=== PATIENT | female | born 1960 | race Caucasian/White ===

== ENCOUNTER → 2017-04-13 | Day surgery (SDC) | payer OTHER ==
[~2017-04-13] VITALS: Ht 165.1 cm; Wt 88.5 kg
== END | disposition home or self-care (01) ==
LOC: FAS 09:53
DX: Z12.11 Encounter for screening for malignant neoplasm of colon (principal); D12.2 Benign neoplasm of ascending colon; K57.30 Diverticulosis of large intestine without perforation or abscess without bleeding; K62.1 Rectal polyp; E03.9 Hypothyroidism, unspecified; J44.9 Chronic obstructive pulmonary disease, unspecified; I10 Essential (primary) hypertension; F17.210 Nicotine dependence, cigarettes, uncomplicated; Z98.890 Other specified postprocedural states; Z79.899 Other long term (current) drug therapy
CPT/HCPCS: J2704

== ENCOUNTER 2020-10-30 12:08 | Day surgery (SDCO) | payer OTHER ==
[2020-10-30 13:00] LABS: BASOPHIL 0.7 % (0-2); EOSINOPHIL 0.4 % (0-5); HCT 50.2 % (37.0-47.0); HGB 17.2 g/dl (12.5-16.0); MCH 31.2 pg (25.0-31.0); MCHC 34.3 g/dL (32.0-36.0); MCV 91.1 fL (78.0-100.0); MONOCYTE 5.1 % (0-12); NEUTROPHIL 69.4 % (41-80); NRBC 0; PLT 426 K/uL (150-400); RBC 5.51 M/uL (4.20-5.40); RDW 12.5 % (11.5-14.0); WBC 13.4 K/uL (4.0-10.5)
[2020-10-30 13:05] LABS: INR 1.06 (0.9-1.2); PROTHROMBIN TIME 13.1 SECONDS (11.4-13.6); PTT 29.8 SECONDS (22.2-34.7)
[2020-10-30 13:06] LABS: D-DIMER < 0.27 ug/mLFEU (0.00-0.41)
[2020-10-30 13:12] LABS: ALBUMIN 4.1 g/dL (3.4-5.0); BILIRUBIN - TOTAL 0.9 mg/dL (0.2-1.0); BUN/CREAT RATIO (CALC) 38.8 RATIO; CREATININE 1.29 mg/dL (0.51-0.95); TOTAL PROTEIN 8.1 g/dL (6.4-8.2)
[2020-10-30 13:22] LABS: PRO-BNP 160 pg/mL (<125)
[2020-10-30 14:11] LABS: CORONAVIRUS 2019 SARS-COV-2 NEGATIVE (NEGATIVE); INFLUENZA A NAA NEGATIVE (NEGATIVE)
[2020-10-30] MEDS ORDERED: PROMETHAZINE DM PO (16:30)
[2020-10-30] MEDS ORDERED: VITAMIN B-121000 MC1 PO (16:32)
[2020-10-30] MEDS ORDERED: EUTHYROX50 MCG PO (16:33)
[2020-10-30] MEDS ORDERED: LISINOPRIL-HCT1 EAC2 PO (16:33)
[2020-10-30] MEDS ORDERED: NORVASC5 MG PO (16:34)
[2020-10-30] MEDS ORDERED: VENTOLIN HFA IN18 GM INH (16:35)
[2020-10-30] MEDS ORDERED: BUSPIRONE HCL10 MG PO (16:35)
[2020-10-31 07:37] LABS: HCT 43.2 % (37.0-47.0); HGB 14.7 g/dl (12.5-16.0); MCH 31.7 pg (25.0-31.0); MCV 93.3 fL (78.0-100.0); MPV 9.8 fL (6.0-9.5); RBC 4.63 M/uL (4.20-5.40); RDW 12.4 % (11.5-14.0); WBC 14.5 K/uL (4.0-10.5)
[2020-10-31 07:46] LABS: BUN/CREAT RATIO (CALC) 36.2 RATIO; CREATININE 0.94 mg/dL (0.51-0.95); POTASSIUM 4.2 mmol/L (3.5-5.1)
[2020-10-31] MEDS ORDERED: AZITHROMYCIN250 MG PO (14:28)
[2020-10-31] MEDS ORDERED: PREDNISONE 20MG20 MG PO (14:28)
[2020-10-31] MEDS ORDERED: AUGMENTIN 875-1 EACH PO (14:49)
--- NOTE | 2020-11-01 10:09 | NUR ---
PT. D/C HOME ON 10/31/2020. NO NEEDS.
== END 2020-10-31 15:48 | disposition home or self-care (01) ==
LOC: FER 12:08 → FMS 15:14
PROVIDERS: Emergency Medicine; ADMIT Internal Medicine
DX: J44.1 Chronic obstructive pulmonary disease with (acute) exacerbation (principal); D35.02 Benign neoplasm of left adrenal gland; I10 Essential (primary) hypertension; E03.9 Hypothyroidism, unspecified; F17.210 Nicotine dependence, cigarettes, uncomplicated; N17.9 Acute kidney failure, unspecified; Z79.2 Long term (current) use of antibiotics; Z79.899 Other long term (current) drug therapy; Z20.822 Contact with and (suspected) exposure to COVID-19
CPT/HCPCS: 36415; 36600; 71045; 71250; 80048; 80053; 82803; 83880; 84484; 85025; 85379; 85610; 85730; 87040; 87070; 87077; 87186; 87205; 94640; G0378; J2405; J2930; J7030; U0002

== ENCOUNTER 2021-06-21 19:53 | Emergency (ER) | payer OTHER ==
[~2021-06-21 19:53] MED LIST: AUGMENTIN 875-1 EACH PO; AZITHROMYCIN250 MG PO; BUSPIRONE HCL10 MG PO; EUTHYROX50 MCG PO; LISINOPRIL-HCT1 EAC2 PO; NORVASC5 MG PO; PREDNISONE 20MG20 MG PO; PROMETHAZINE DM PO; VENTOLIN HFA IN18 GM INH; VITAMIN B-121000 MC1 PO
[2021-06-21 21:01] LABS: BASOPHIL 0.3 % (0-2); EOSINOPHIL 0 % (0-5); HCT 44.1 % (37.0-47.0); HGB 14.5 g/dl (12.5-16.0); LYMPHOCYTE 6.7 % (15-48); MCH 29.4 pg (25.0-31.0); MCHC 32.9 g/dL (32.0-36.0); MCV 89.5 fL (78.0-100.0); MONOCYTE 4.8 % (0-12); MPV 10.5 fL (6.0-9.5); NEUTROPHIL 87.4 % (41-80); NRBC 0; PLT 240 K/uL (150-400); RBC 4.93 M/uL (4.20-5.40); RDW 13.2 % (11.5-14.0); WBC 20.2 K/uL (4.0-10.5)
[2021-06-21 21:09] LABS: ALBUMIN 3.7 g/dL (3.4-5.0); BILIRUBIN - TOTAL 1.1 mg/dL (0.2-1.0); BUN/CREAT RATIO (CALC) 19.7 RATIO; CREATININE 0.71 mg/dL (0.51-0.95); GLOBULIN (CALCULATION) 3.8 g/dL; POTASSIUM 3.4 mmol/L (3.5-5.1); TOTAL PROTEIN 7.5 g/dL (6.4-8.2)
[2021-06-21 21:18] LABS: AMPHETAMINES POSITIVE (NEGATIVE); BARBITURATES NEGATIVE (NEGATIVE); ECSTASY (MDMA) NEGATIVE (NEGATIVE); MARIJUANA (THC) POSITIVE (NEGATIVE); METHADONE NEGATIVE (NEGATIVE); OPIATES NEGATIVE (NEGATIVE); OXYCODONE NEGATIVE (NEGATIVE)
[2021-06-21 22:40] LABS: LACTIC ACID 1.8 mmol/L (0.4-1.9)
[2021-06-22 00:03] LABS: BILIRUBIN NEGATIVE (NEGATIVE); BLOOD 1+ Ery/uL (NEGATIVE); CLARITY CLEAR (CLEAR); COLOR YELLOW (YELLOW); GLUCOSE (U) NORMAL (NORMAL); LEUKOCYTES NEGATIVE Leu/uL (NEGATIVE); NITRITE POSITIVE (NEGATIVE); PROTEIN 1+ mg/dL (NEGATIVE); SPECIFIC GRAVITY 1.015 (1.001-1.030); UROBILINOGEN 0.2 mg/dL (0.2-1.0)
[2021-06-22 00:09] LABS: BACTERIA 4+
[2021-06-22] MEDS ORDERED: BACTRIM DS TAB1 EACH PO (00:28)
== END 2021-06-22 01:05 | disposition home or self-care (01) ==
LOC: FER 19:53
PROVIDERS: Emergency Medicine
DX: L03.116 Cellulitis of left lower limb (principal); N39.0 Urinary tract infection, site not specified; F15.90 Other stimulant use, unspecified, uncomplicated; I10 Essential (primary) hypertension; J44.9 Chronic obstructive pulmonary disease, unspecified; F17.210 Nicotine dependence, cigarettes, uncomplicated; Z20.822 Contact with and (suspected) exposure to COVID-19
CPT/HCPCS: 36415; 71045; 71275; 80053; 80305; 81001; 83605; 83880; 84484; 85025; 85379; 87040; 87076; 87088; 87186; 93005; 93971; 94664; J2543; J3370; J7030; J7050; Q9967; U0002